=== PATIENT | female | born 1940 | race Caucasian/White ===

== ENCOUNTER 2016-07-13 08:55 | Day surgery (SDC) | payer MEDICARE, OTHER ==
[~2016-07-13] VITALS: Ht 160 cm; Wt 84.0 kg
[~2016-07-13 08:55] MED LIST: 0.9% Sodium Chloride 1,000 ML IV SCH; ACET650T46 PO; ASPI325T32 PO; Aspirin PO; CLOB15CR3 TOP; DESO15CR25 TOP; LETR2.5T4 PO; METO50TA7 PO; NAPR220C16 PO; OMEP20CA11 PO; Sodium Chloride LOK Flush 10 mL Syringe IV PRN; fentaNYL-PF 50 mCg/mL 2 mL Inj IVPUSH PRN
[2016-07-13 09:42] VITALS: BP 127/73; PULSE 60; RESP 16; O2SAT 97
[2016-07-13 11:00] VITALS: BP 116/71; PULSE 68; RESP 16; O2SAT 95
[2016-07-13 11:10] VITALS: BP 114/65; PULSE 59; RESP 14; O2SAT 96
[2016-07-13 11:24] VITALS: BP 110/65; PULSE 56; RESP 14; O2SAT 96
--- NOTE | 2016-07-14 08:59 | ENDO ---
[address] [address] ENDOSCOPY PROCEDURE PATIENT: MARIA DEL CARMEN KING : 1940 MR#: [id number] ADMIT: 07/13/2016 JOB ID: [id number] DATE: 07/13/2016 PROCEDURE: Esophagogastroduodenoscopy. INDICATION: Early satiety. The patient's ASA classification is 2. Mallampati score is 2. MEDICATIONS: 1. Versed 5 mg. 2. Fentanyl 75 mcg. INSTRUMENT USED: GIF H 180 J. PROCEDURE DETAILS: After informed consent was obtained, the patient was brought into the GI suite, where she was placed on oxygen via nasal cannula and monitored with continuous pulse oximeter, telemetry and blood pressure monitoring. A bite block was placed. The standard EGD scope was inserted through the bite block and advanced without difficulty to the second portion of the duodenum. FINDINGS: 1. Just beyond the duodenal bulb and first portion of the duodenum, the mucosa was erythematous and friable. This was a short segment. Approximately 1 cm in length. Biopsy was obtained. 2. The duodenal bulb appeared unremarkable. 3. Normal appearing pylorus. The distal antrum mucosa appeared normal. However, mucosa proximal to that and extending to the mid gastric body was edematous, friable, hard with submucosal hemorrhage. There was poor insufflation of this area despite large amounts of air. Biopsies were obtained and the biopsy felt very firm with biopsy forceps. Multiple biopsies were obtained in normal-appearing antral tissue as well as in the body where we appreciated the friable, edematous and hard mucosa that was poorly distensible. This extended to the mid gastric body. Proximal to this, the mucosa distended well. The mucosa otherwise appeared unremarkable. Multiple biopsies were obtained here as well. 4. Retroflexed views in the gastric body revealed a normal-appearing cardia and fundus. 5. Normal appearing GE junction at 40 cm. 6. Normal appearing esophagus. IMPRESSION: Gastric tumor involving the gastric body. This tumor appeared to be circumferential. It appeared to snare the fundus and proximal portions of the gastric stomach as well as distal portions. IMPRESSION: Gastric cancer. PLAN: Await biopsy results, and then pending results, may need to consider repeat imaging with CT scan. Will also call her oncologist to discuss findings. COMPLICATIONS: None. ESTIMATED BLOOD LOSS: Less than 15 mL.
--- NOTE | 2016-07-14 15:27 | PATH ---
SURGICAL PATHOLOGY Attending Physician:Kika Karimi CASE STATUS: Signed Out PATIENT NAME: MARIA DEL CARMEN KING PID: [id number] : 1940 DATE COLLECTED:07/13/2016 18:07 SPECIMEN: 1: Duodenum, Biopsy 2: Gastric, Biopsy 3: Stomach, Antrum, Biopsy 4: Gastric, Biopsy CLINICAL HISTORY: 1. DUODENAL 2. GASTRIC 3. ANTRUM 4. PROXIMAL GASRIC BODY FINAL DIAGNOSIS: 1. Duodenal Biopsy: Positive for neoplasm. Immunohistochemistry studies pending on part 2; results will be reported as an addendum. 2. Gastric Biopsy: Positive for neoplasm. Immunohistochemistry studies pending; results will be reported as an addendum. 3. Antrum, Biopsy: Portions of gastric antral mucosa with chronic gastritis. Negative for Helicobacter organisms by H&E stain. Negative for intestinal metaplasia, dysplasia, and malignancy. H. pylori immunostain pending; results will be reported as an addendum. 4. Proximal Gastric Body: Positive for neoplasm. Immunohistochemistry studies pending on part 2; results will be reported as an addendum. ICD10: C16 NOTE: Results called to Dr. Kika Reinoso on 07/14/2016 at approximately 10:25 a.m. Slides were reviewed by a second pathologist, who concurs with the above interpretation. GROSS DESCRIPTION: The specimen is received in four formalin filled containers labeled with the patient's name. 1). The specimen is sublabeled "duodenal" and consists of a 0.3 x 0.2 x 0.2 CM portion of tissue which is entirely submitted in cassette 1A. 2). The specimen is sublabeled "gastric" and consists of 4 portions of tissue which aggregate to 0.4 x 0.3 x 0.2 CM. The specimen is entirely submitted in cassette 2A. 3). The specimen is sublabeled "antrum" and consists of a 0.3 x 0.3 x 0.3 CM portion of tissue which is entirely submitted in cassette 3A. 4). The specimen is sublabeled "proximal gastric" and consists of 3 portions of tissue which aggregate to 0.3 x 0.3 x 0.2 CM. The specimen is entirely submitted in cassette 4A. 07/13/2016 [facility] ICD-9 CODES: CPT CODES: 1: 71564 2: 75166, 52298, 94608, 45080, 49640, 13057, 34362, 51319, 29663, 15183, 06036, 01923, 20960 3: 29457, 23303 4: 53712 PROCEDURE/ADDENDA: Immunohistochemistry SPI Interpretation {Not Entered} Results-Comments Immunohistochemistry Results The following immunohistochemistry was performed on part 2 (gastric biopsy): CHRIS:Positive CK7:Positive CK20:Negative CD45:Tumor cells negative, background inflammatory cells positive CDX2:Negative Villin:Tumor cells negative Her-2 Fer:Tumor cells negative Synaptophysin:Tumor cells negative Chromogranin:Tumor cells negative ANSON-3:Tumor cells positive Interpretation: The positive ANSON-3 and CK7 with all of the other antigens negative is 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 This tumor is present in part 1 (duodenal biopsy), part 2 (gastric biopsy), and part 4 (proximal gastric biopsy). Part 3, Antrum Biopsy: Negative for Helicobacter pylori by immunohistochemistry. COMMENT: The results of this immunohistochemistry evaluation are telephoned to Dr. Guzman Reinoso at 1210 on 07/17/16. This test was developed and its performance characteristics determined by [facility]. It has not been cleared or approved by the [place]. Food and Drug Administration. The FDA has determined that such clearance or approval is not necessary. This test is used for clinical purposes. It should not be regarded as investigational or for research. Electronically Signed Out Pete Roberson MD Immunohistochemistry SPI Interpretation {Not Entered} Results-Comments The addendum is issued to report the results of IHC. PART 2: GASTRIC BIOPSY Estrogen Receptor (ER) Status: Positive, 80% of cells Average intensity of staining: Strong Primary antibody: SP1 Progesterone Receptor (PgR) Status: Negative Average intensity of staining: No staining Primary antibody: 1E2 HER2 (by immunohistochemistry): Negative (Score 0) Primary antibody: 4B5 Testing performed on Block Number: 2A *This test was developed and its performance characteristics determined by [facility]. It has not been cleared or approved by the [place]. Food and Drug Administration. The FDA has determined that such clearance or approval is not necessary. This test is used for clinical purposes. It should not be regarded as investigational or for research. Electronically Signed Out Jannette Curry MD Electronically Signed Out Maggie Cerrato MD [facility] Pathology [facility] [address], [place] [address] Technical component performed at [facility], [facility] [address], [place], [address]
== END 2016-07-13 23:59 | disposition home or self-care (01) ==
LOC: END 08:55
PROVIDERS: ATTEND Internal Medicine Gastroenterology
DX: C16.2 Malignant neoplasm of body of stomach (principal); I10 Essential (primary) hypertension; K21.9 Gastro-esophageal reflux disease without esophagitis; I48.91 Unspecified atrial fibrillation; Z79.82 Long term (current) use of aspirin; K29.50 Unspecified chronic gastritis without bleeding
CPT/HCPCS: 43239; 88305; 88341; 88342; 88360; G0500; J7030